=== PATIENT | female | born 1960 | race African-American/Black ===

== ENCOUNTER 2020-05-18 06:49 | Day surgery (SDC) | payer MEDICAID, MEDICARE, OTHER ==
[~2020-05-18 06:49] MED LIST: Lactated Ringers 1,000 ML IV SCH
[2020-05-18] MEDS ORDERED: Lactated Ringers 1,000 ML IV SCH (07:00)
[2020-05-18] MEDS ORDERED: Midazolam 1 MG/ML 2 ML SDV ONE (07:16)
[2020-05-18] MEDS ORDERED: Propofol 200 MG/20 ML SDV ONE (07:16)
[2020-05-18] MEDS ORDERED: fentaNYL 100 MCG/2 ML SDV ONE (07:16)
[2020-05-18 08:28] VITALS: BP 136/62; PULSE 79
--- NOTE | 2020-05-18 11:15 | OR ---
PREOPERATIVE DIAGNOSIS: Positive Cologuard. POSTOPERATIVE DIAGNOSIS: Large colon polyps. PROCEDURE PERFORMED: Total flexible colonoscopy. ANESTHESIA: MAC anesthesia. COMPLICATIONS: None apparent. BLOOD LOSS: Minimal. FINDINGS: 1. Ascending colon polyp, 2 mm, cold forceps. 2. Sigmoid colon polyp, 15 mm, hot snare. BOWEL PREP: [place] class 2. INDICATIONS FOR PROCEDURE: Isela Mancilla is a 60-year-old morbidly obese woman with recent positive Cologuard. She has never had a colonoscopy. She denies bloody or dark black stools. DETAILS OF PROCEDURE: After informed consent was obtained, the patient was brought to the procedure room. MAC anesthesia was induced by anesthesia colleagues. She was placed in left lateral decubitus position. The colonoscope was introduced into the rectum and advanced all the way to the cecum. Due to her habitus, this was a more difficult and time-consuming than usual. There was quite a bit of staining in the cecum what we felt that we missed no large polyps. The colonoscope was then slowly withdrawn and no pathology was identified except for what is mentioned in the above findings section. A retroflexed view was obtained. The patient tolerated the procedure well and was awoken from MAC anesthesia by Anesthesia colleagues without incident. Pathology: A) Colon, ascending, polyp Tubular adenoma B) Colon, sigmoid, polyp Tubulovillous adenoma Comment: Where the polyp stock margin is seen in one cross section of specimen B, no dysplasia is present. Recommend repeat colonoscopy in 1 year given the question of a positive margin on the large polyp. RKM: 05/18/2020 08:22:08 MODL: 05/18/2020 09:54:01 /[id number] JAXON
--- NOTE | 2020-05-29 14:40 | LETTER ---
05/29/2020 RE: KARTHIK MANCILLA : 1960 Karthik Mancilla [address] [place] [id number] Dear Ms. Mancilla: I am writing to inform you of the pathology results from your recent colonoscopy. You had 1 smaller polyp which was a tubular adenoma. You also had 1 larger polyp which was a tubulovillous adenoma. These polyps do not contain cancer, but they can become cancer which is why we removed them. Due to the large size of the polyp in your sigmoid colon, I recommend you have a repeat colonoscopy in 1 year to make sure that polyp is not growing back. I expect we will be able to utilize longer screening intervals after your colonoscopy in 1 year. Warmest regards,
== END 2020-05-18 09:05 | disposition home or self-care (01) ==
LOC: VM.SDS 06:49
PROVIDERS: ATTEND Student in an Organized Health Care Education/Training Program
DX: D12.5 Benign neoplasm of sigmoid colon (principal); D12.2 Benign neoplasm of ascending colon; U07.1 COVID-19; E66.01 Morbid (severe) obesity due to excess calories; I10 Essential (primary) hypertension; E78.5 Hyperlipidemia, unspecified; G89.29 Other chronic pain; I87.2 Venous insufficiency (chronic) (peripheral); E78.00 Pure hypercholesterolemia, unspecified; G47.33 Obstructive sleep apnea (adult) (pediatric); Z98.890 Other specified postprocedural states; Z79.899 Other long term (current) drug therapy; Z91.011 Allergy to milk products; Z68.44 Body mass index [BMI] 60.0-69.9, adult
CPT/HCPCS: 00811; 88305; J2250; J2704; J3010; J7120; U0002

== ENCOUNTER 2021-09-19 12:27 | Day surgery (SDC) | payer MEDICARE, SELFPAY ==
[~2021-09-19 12:27] MED LIST changes: +Sodium Chloride 0.9% 10 ML Syringe FLUSH PRN
[2021-09-19] MEDS ORDERED: Propofol 200 MG/20 ML SDV ONE ×2 (13:19→13:38)
[2021-09-19] MEDS ORDERED: fentaNYL 100 MCG/2 ML SDV ONE (13:19)
[2021-09-19 14:31] VITALS: BP 135/66; PULSE 78
== END 2021-09-19 15:15 | disposition home or self-care (01) ==
LOC: VM.SDS 12:27
PROVIDERS: ATTEND Family Medicine
DX: Z12.11 Encounter for screening for malignant neoplasm of colon (principal); D12.2 Benign neoplasm of ascending colon; D12.3 Benign neoplasm of transverse colon; G47.33 Obstructive sleep apnea (adult) (pediatric); I10 Essential (primary) hypertension; I48.91 Unspecified atrial fibrillation; E78.1 Pure hyperglyceridemia; I87.2 Venous insufficiency (chronic) (peripheral); E66.01 Morbid (severe) obesity due to excess calories; Z68.43 Body mass index [BMI] 50.0-59.9, adult; Z91.011 Allergy to milk products; Z98.890 Other specified postprocedural states; Z79.899 Other long term (current) drug therapy; Z79.82 Long term (current) use of aspirin; Z86.010 Personal history of colon polyps; I25.10 Atherosclerotic heart disease of native coronary artery without angina pectoris
CPT/HCPCS: 00811; 88305; J2704; J3010; J7120

== ENCOUNTER 2022-07-11 09:23 | Emergency (ER) | payer MEDICARE, OTHER ==
[2022-07-11 10:12] LABS: ANION GAP 42.1 mmol/L (5-15); CHLORIDE,CL 90 mmol/L (98-107); ESTIMATED GFR 13 mL/min (>=60); SODIUM,NA 138 mmol/L (136-145)
[2022-07-11] MEDS ORDERED: Sodium Chloride 0.9% 1,000 ML IV ONE (10:14)
[2022-07-11] MEDS ORDERED: cefTRIAXone 2 GM Vial IVPUSH ONE (10:15)
[2022-07-11] MEDS ORDERED: 50% Dextrose in Water 50 ML Syringe IVPUSH PRN ×2 (10:27→10:47)
[2022-07-11] MEDS ORDERED: Insulin Regular, Human 100 Units/ML 3 ML Vial IVPUSH ONE ×2 (10:27→10:47)
[2022-07-11] MEDS ORDERED: Glucagon,Human Recombinant 1 MG Vial IM PRN ×2 (10:27→10:47)
[2022-07-11] MEDS ORDERED: Ondansetron 4 MG/2 ML SDV IVPUSH ONE (10:34)
[2022-07-11] MEDS ORDERED: Potassium Chloride Riders 20 MEQ in Premix Bag 1 BAG IV SCH (10:45)
[2022-07-11] MEDS ORDERED: Sodium Chloride 0.45% 1,000 ML IV SCH ×2 (10:45→11:45)
[2022-07-11 11:02] LABS: PCO2 ARTERIAL,POC 20 mmHg (35-48)
[2022-07-11 11:32] LABS: CORONAVIRUS COVID-19 NAA NEGATIVE (NEGATIVE)
[2022-07-11 11:39] LABS: HEMOGLOBIN A1C 11.7 % (<5.7)
[2022-07-11 11:49] VITALS: BP 107/41; PULSE 95
== END 2022-07-11 12:35 | disposition short-term general hospital (02) ==
LOC: VM.ED 09:23
DX: E11.10 Type 2 diabetes mellitus with ketoacidosis without coma (principal); E78.00 Pure hypercholesterolemia, unspecified; I10 Essential (primary) hypertension; E66.9 Obesity, unspecified; Z68.30 Body mass index [BMI] 30.0-30.9, adult; Z91.011 Allergy to milk products; Z20.822 Contact with and (suspected) exposure to COVID-19; Z79.899 Other long term (current) drug therapy
CPT/HCPCS: 0240U; 36415; 36600; 70450; 71045; 73502; 80053; 82803; 83036; 83605; 83735; 84100; 84145; 84484; 85025; 86140; 87040; 93005; 96361; 96365; 96368; 96375; 99285; J0696; J1815; J2405; J3370; J3480; J7030; J7050; 93010; 99284; J3490

== ENCOUNTER 2022-07-22 12:15 | Inpatient (IN) | payer MEDICARE ==
[2022-07-22] MEDS ORDERED: 50% Dextrose in Water 50 ML Syringe IVPUSH PRN (14:06)
[2022-07-22] MEDS ORDERED: Glucagon,Human Recombinant 1 MG Vial IM PRN (14:06)
[2022-07-22] MEDS: Furosemide 40 MG Tab PO SCH (14:53)
[2022-07-22] MEDS: Misoprostol 100 MCG Tab PO SCH ×2 (18:00→20:28)
[2022-07-22] MEDS: Omeprazole 20 MG Cap.CR PO SCH (18:00)
[2022-07-22] MEDS: Insulin Lispro 100 Units/ML 3 ML Vial SUBCUT SCH ×2 (18:01→18:03)
[2022-07-22] MEDS: atorvaSTATin 10 MG Tab PO SCH (20:28)
[2022-07-22] MEDS: Calcium Carbonate/Vitamin D3 1250 MG-5 MCG Tab PO SCH (20:28)
[2022-07-23] MEDS: Acetaminophen 325 MG Tab PO PRN ×2 (00:14→20:41)
[2022-07-23] MEDS: Omeprazole 20 MG Cap.CR PO SCH ×2 (06:15→17:57)
[2022-07-23] MEDS: Furosemide 40 MG Tab PO SCH ×2 (08:09→14:05)
[2022-07-23] MEDS: Hydrochlorothiazide 25 MG Tab PO SCH (08:09)
[2022-07-23] MEDS: Cyanocobalamin (Vitamin B12) 250 MCG Tab PO SCH (08:11)
[2022-07-23] MEDS: Zinc Sulfate 220 MG Cap PO SCH (08:11)
[2022-07-23] MEDS: Aspirin 81 MG Tab.EC PO SCH (08:11)
[2022-07-23] MEDS: Misoprostol 100 MCG Tab PO SCH ×4 (08:12→20:34)
[2022-07-23] MEDS: Calcium Carbonate/Vitamin D3 1250 MG-5 MCG Tab PO SCH ×2 (08:12→20:34)
[2022-07-23] MEDS: Metoprolol Succinate 50 MG Tab.ER PO SCH (08:12)
[2022-07-23] MEDS: Insulin Lispro 100 Units/ML 3 ML Vial SUBCUT SCH ×6 (08:13→17:58)
[2022-07-23] MEDS: Polyethylene Glycol 3350 Powder 17 GM Packet PO SCH (08:15)
[2022-07-23] MEDS: Insulin Glarg,Human.Rec.Analog 100 Unit/ML SUBCUT SCH (08:18)
[2022-07-23] MEDS: atorvaSTATin 10 MG Tab PO SCH (20:34)
[2022-07-24] MEDS: Omeprazole 20 MG Cap.CR PO SCH ×2 (06:12→18:00)
[2022-07-24] MEDS: Insulin Lispro 100 Units/ML 3 ML Vial SUBCUT SCH ×6 (08:11→17:59)
[2022-07-24] MEDS: Cyanocobalamin (Vitamin B12) 250 MCG Tab PO SCH (08:27)
[2022-07-24] MEDS: Misoprostol 100 MCG Tab PO SCH ×4 (08:27→21:11)
[2022-07-24] MEDS: Aspirin 81 MG Tab.EC PO SCH (08:27)
[2022-07-24] MEDS: Furosemide 40 MG Tab PO SCH ×2 (08:27→13:49)
[2022-07-24] MEDS: Calcium Carbonate/Vitamin D3 1250 MG-5 MCG Tab PO SCH ×2 (08:28→21:12)
[2022-07-24] MEDS: Metoprolol Succinate 50 MG Tab.ER PO SCH (08:28)
[2022-07-24] MEDS: Polyethylene Glycol 3350 Powder 17 GM Packet PO SCH (08:28)
[2022-07-24] MEDS: Zinc Sulfate 220 MG Cap PO SCH (08:28)
[2022-07-24] MEDS: Hydrochlorothiazide 25 MG Tab PO SCH (08:29)
[2022-07-24] MEDS: Insulin Glarg,Human.Rec.Analog 100 Unit/ML SUBCUT SCH (08:30)
[2022-07-24] MEDS: atorvaSTATin 10 MG Tab PO SCH (21:12)
[2022-07-24] MEDS: Acetaminophen 325 MG Tab PO PRN (21:12)
[2022-07-25] MEDS: Omeprazole 20 MG Cap.CR PO SCH ×2 (06:41→17:28)
[2022-07-25] MEDS: Acetaminophen 325 MG Tab PO PRN (07:28)
[2022-07-25] MEDS: Calcium Carbonate/Vitamin D3 1250 MG-5 MCG Tab PO SCH ×2 (08:46→21:05)
[2022-07-25] MEDS: Misoprostol 100 MCG Tab PO SCH ×4 (08:46→21:04)
[2022-07-25] MEDS: Hydrochlorothiazide 25 MG Tab PO SCH (08:46)
[2022-07-25] MEDS: Furosemide 40 MG Tab PO SCH ×2 (08:46→13:24)
[2022-07-25] MEDS: Zinc Sulfate 220 MG Cap PO SCH (08:46)
[2022-07-25] MEDS: Cyanocobalamin (Vitamin B12) 250 MCG Tab PO SCH (08:46)
[2022-07-25] MEDS: Polyethylene Glycol 3350 Powder 17 GM Packet PO SCH (08:46)
[2022-07-25] MEDS: Aspirin 81 MG Tab.EC PO SCH (08:46)
[2022-07-25] MEDS: Metoprolol Succinate 50 MG Tab.ER PO SCH (08:47)
[2022-07-25] MEDS: Insulin Glarg,Human.Rec.Analog 100 Unit/ML SUBCUT SCH (08:53)
[2022-07-25] MEDS: Insulin Lispro 100 Units/ML 3 ML Vial SUBCUT SCH ×6 (08:54→17:29)
[2022-07-25] MEDS: oxyCODONE 5 MG Tab PO PRN (21:05)
[2022-07-25] MEDS: atorvaSTATin 10 MG Tab PO SCH (21:05)
[2022-07-26] MEDS: Omeprazole 20 MG Cap.CR PO SCH ×2 (06:21→18:22)
[2022-07-26] MEDS: Insulin Lispro 100 Units/ML 3 ML Vial SUBCUT SCH ×6 (08:30→18:21)
[2022-07-26] MEDS: Insulin Glarg,Human.Rec.Analog 100 Unit/ML SUBCUT SCH (08:35)
[2022-07-26] MEDS: Zinc Sulfate 220 MG Cap PO SCH (08:37)
[2022-07-26] MEDS: Aspirin 81 MG Tab.EC PO SCH (08:37)
[2022-07-26] MEDS: Misoprostol 100 MCG Tab PO SCH ×4 (08:41→20:45)
[2022-07-26] MEDS: Metoprolol Succinate 50 MG Tab.ER PO SCH (08:41)
[2022-07-26] MEDS: Hydrochlorothiazide 25 MG Tab PO SCH (08:41)
[2022-07-26] MEDS: Polyethylene Glycol 3350 Powder 17 GM Packet PO SCH (08:42)
[2022-07-26] MEDS: Calcium Carbonate/Vitamin D3 1250 MG-5 MCG Tab PO SCH ×2 (08:42→20:46)
[2022-07-26] MEDS: Furosemide 40 MG Tab PO SCH ×2 (08:42→14:45)
[2022-07-26] MEDS: Cyanocobalamin (Vitamin B12) 250 MCG Tab PO SCH (08:42)
[2022-07-26] MEDS: atorvaSTATin 10 MG Tab PO SCH (20:45)
[2022-07-26] MEDS: Acetaminophen 325 MG Tab PO PRN (20:48)
[2022-07-27] MEDS: Omeprazole 20 MG Cap.CR PO SCH ×2 (06:01→16:49)
[2022-07-27] MEDS: Polyethylene Glycol 3350 Powder 17 GM Packet PO SCH (08:13)
[2022-07-27] MEDS: Aspirin 81 MG Tab.EC PO SCH (08:13)
[2022-07-27] MEDS: Zinc Sulfate 220 MG Cap PO SCH (08:14)
[2022-07-27] MEDS: Furosemide 40 MG Tab PO SCH ×2 (08:14→16:49)
[2022-07-27] MEDS: Cyanocobalamin (Vitamin B12) 250 MCG Tab PO SCH (08:14)
[2022-07-27] MEDS: Hydrochlorothiazide 25 MG Tab PO SCH (08:14)
[2022-07-27] MEDS: Calcium Carbonate/Vitamin D3 1250 MG-5 MCG Tab PO SCH ×2 (08:14→21:29)
[2022-07-27] MEDS: Misoprostol 100 MCG Tab PO SCH ×4 (08:14→21:29)
[2022-07-27] MEDS: Metoprolol Succinate 50 MG Tab.ER PO SCH (08:16)
[2022-07-27] MEDS: Insulin Lispro 100 Units/ML 3 ML Vial SUBCUT SCH ×6 (08:17→17:49)
[2022-07-27] MEDS: Insulin Glarg,Human.Rec.Analog 100 Unit/ML SUBCUT SCH (08:18)
[2022-07-27] MEDS: oxyCODONE 5 MG Tab PO PRN (21:29)
[2022-07-27] MEDS: atorvaSTATin 10 MG Tab PO SCH (21:29)
[2022-07-28] MEDS: Omeprazole 20 MG Cap.CR PO SCH ×2 (06:45→17:50)
[2022-07-28] MEDS: Furosemide 40 MG Tab PO SCH ×2 (08:37→13:31)
[2022-07-28] MEDS: Cyanocobalamin (Vitamin B12) 250 MCG Tab PO SCH (08:37)
[2022-07-28] MEDS: Aspirin 81 MG Tab.EC PO SCH (08:37)
[2022-07-28] MEDS: Hydrochlorothiazide 25 MG Tab PO SCH (08:37)
[2022-07-28] MEDS: Calcium Carbonate/Vitamin D3 1250 MG-5 MCG Tab PO SCH ×2 (08:38→20:26)
[2022-07-28] MEDS: Misoprostol 100 MCG Tab PO SCH ×4 (08:38→20:26)
[2022-07-28] MEDS: Polyethylene Glycol 3350 Powder 17 GM Packet PO SCH (08:38)
[2022-07-28] MEDS: Metoprolol Succinate 50 MG Tab.ER PO SCH (08:38)
[2022-07-28] MEDS: Zinc Sulfate 220 MG Cap PO SCH (08:38)
[2022-07-28] MEDS: Insulin Lispro 100 Units/ML 3 ML Vial SUBCUT SCH ×6 (08:39→17:56)
[2022-07-28] MEDS: Insulin Glarg,Human.Rec.Analog 100 Unit/ML SUBCUT SCH (08:42)
[2022-07-28] MEDS: atorvaSTATin 10 MG Tab PO SCH (20:26)
[2022-07-28] MEDS: oxyCODONE 5 MG Tab PO PRN (21:31)
[2022-07-29] MEDS: Omeprazole 20 MG Cap.CR PO SCH ×2 (06:07→18:15)
[2022-07-29 07:07] LABS: ANION GAP 11.7 mmol/L (5-15)
[2022-07-29] MEDS: Metoprolol Succinate 50 MG Tab.ER PO SCH (08:06)
[2022-07-29] MEDS: Zinc Sulfate 220 MG Cap PO SCH (08:06)
[2022-07-29] MEDS: Misoprostol 100 MCG Tab PO SCH ×4 (08:06→21:14)
[2022-07-29] MEDS: Hydrochlorothiazide 25 MG Tab PO SCH (08:06)
[2022-07-29] MEDS: Calcium Carbonate/Vitamin D3 1250 MG-5 MCG Tab PO SCH ×2 (08:06→21:15)
[2022-07-29] MEDS: Aspirin 81 MG Tab.EC PO SCH (08:06)
[2022-07-29] MEDS: Cyanocobalamin (Vitamin B12) 250 MCG Tab PO SCH (08:06)
[2022-07-29] MEDS: Insulin Glarg,Human.Rec.Analog 100 Unit/ML SUBCUT SCH (08:07)
[2022-07-29] MEDS: Insulin Lispro 100 Units/ML 3 ML Vial SUBCUT SCH ×5 (08:07→18:16)
[2022-07-29] MEDS: Furosemide 40 MG Tab PO SCH ×2 (08:08→13:39)
[2022-07-29] MEDS: Polyethylene Glycol 3350 Powder 17 GM Packet PO SCH (08:08)
[2022-07-29] MEDS: atorvaSTATin 10 MG Tab PO SCH (21:14)
[2022-07-29] MEDS: oxyCODONE 5 MG Tab PO PRN (22:41)
[2022-07-30] MEDS: Omeprazole 20 MG Cap.CR PO SCH ×2 (06:46→18:03)
[2022-07-30] MEDS: Polyethylene Glycol 3350 Powder 17 GM Packet PO SCH (08:12)
[2022-07-30] MEDS: Insulin Lispro 100 Units/ML 3 ML Vial SUBCUT SCH ×8 (08:13→18:30)
[2022-07-30] MEDS: Insulin Glarg,Human.Rec.Analog 100 Unit/ML SUBCUT SCH (08:13)
[2022-07-30] MEDS: Calcium Carbonate/Vitamin D3 1250 MG-5 MCG Tab PO SCH ×2 (08:14→21:06)
[2022-07-30] MEDS: Cyanocobalamin (Vitamin B12) 250 MCG Tab PO SCH (08:14)
[2022-07-30] MEDS: Aspirin 81 MG Tab.EC PO SCH (08:14)
[2022-07-30] MEDS: Zinc Sulfate 220 MG Cap PO SCH (08:14)
[2022-07-30] MEDS: Furosemide 40 MG Tab PO SCH ×2 (08:14→13:52)
[2022-07-30] MEDS: Metoprolol Succinate 50 MG Tab.ER PO SCH (08:14)
[2022-07-30] MEDS: Hydrochlorothiazide 25 MG Tab PO SCH (08:14)
[2022-07-30] MEDS: Misoprostol 100 MCG Tab PO SCH ×4 (08:14→21:06)
[2022-07-30] MEDS: Acetaminophen 325 MG Tab PO PRN (09:57)
[2022-07-30] MEDS: oxyCODONE 5 MG Tab PO PRN (21:06)
[2022-07-30] MEDS: atorvaSTATin 10 MG Tab PO SCH (21:06)
[2022-07-31] MEDS: Acetaminophen 325 MG Tab PO PRN (04:22)
[2022-07-31] MEDS: Omeprazole 20 MG Cap.CR PO SCH (06:24)
[2022-07-31] MEDS: Insulin Lispro 100 Units/ML 3 ML Vial SUBCUT SCH ×4 (08:43→11:20)
[2022-07-31] MEDS: Insulin Glarg,Human.Rec.Analog 100 Unit/ML SUBCUT SCH (08:45)
[2022-07-31] MEDS: Hydrochlorothiazide 25 MG Tab PO SCH (08:46)
[2022-07-31] MEDS: Calcium Carbonate/Vitamin D3 1250 MG-5 MCG Tab PO SCH (08:46)
[2022-07-31] MEDS: Furosemide 40 MG Tab PO SCH (08:47)
[2022-07-31] MEDS: Misoprostol 100 MCG Tab PO SCH (08:48)
[2022-07-31] MEDS: Zinc Sulfate 220 MG Cap PO SCH (08:48)
[2022-07-31] MEDS: Aspirin 81 MG Tab.EC PO SCH (08:48)
[2022-07-31] MEDS: Metoprolol Succinate 50 MG Tab.ER PO SCH (08:49)
[2022-07-31 08:53] VITALS: BP 132/74; PULSE 94
[2022-07-31] MEDS: Cyanocobalamin (Vitamin B12) 250 MCG Tab PO SCH (08:53)
[2022-07-31] MEDS: Polyethylene Glycol 3350 Powder 17 GM Packet PO SCH (08:54)
[2022-07-31] MEDS: oxyCODONE 5 MG Tab PO PRN (10:56)
== END 2022-07-31 12:41 | disposition home health service (06) | DRG 682 ==
LOC: VM.MS 12:15
PROVIDERS: ADMIT Nurse Practitioner Family; ATTEND Nurse Practitioner Family
DX: N17.9 Acute kidney failure, unspecified (principal); E11.10 Type 2 diabetes mellitus with ketoacidosis without coma; G93.41 Metabolic encephalopathy; I50.32 Chronic diastolic (congestive) heart failure; K22.10 Ulcer of esophagus without bleeding; Z68.43 Body mass index [BMI] 50.0-59.9, adult; I24.8 Other forms of acute ischemic heart disease; E66.01 Morbid (severe) obesity due to excess calories; I25.10 Atherosclerotic heart disease of native coronary artery without angina pectoris; K44.9 Diaphragmatic hernia without obstruction or gangrene; K31.89 Other diseases of stomach and duodenum; E78.00 Pure hypercholesterolemia, unspecified; G89.29 Other chronic pain; I87.2 Venous insufficiency (chronic) (peripheral); M54.9 Dorsalgia, unspecified; E78.5 Hyperlipidemia, unspecified; G47.33 Obstructive sleep apnea (adult) (pediatric); I11.0 Hypertensive heart disease with heart failure; Z79.82 Long term (current) use of aspirin; Z79.899 Other long term (current) drug therapy; Z79.4 Long term (current) use of insulin; Z98.890 Other specified postprocedural states; Z83.3 Family history of diabetes mellitus
CPT/HCPCS: 36415; 80053; 82947; 85027; 95851-GO; 97110-GP; 97116-GP; 97162-GP; 97165-GO; 97530-GP; 97535-GO; A9270-GY; J1815-GY

== ENCOUNTER 2022-08-01 20:53 | Emergency (ER) | payer MEDICARE ==
[2022-08-01] MEDS ORDERED: 50% Dextrose in Water 50 ML Syringe IV ONE ×5 (21:02→23:51)
[2022-08-01 21:32] LABS: ANION GAP 12.6 mmol/L (5-15); CHLORIDE,CL 103 mmol/L (98-107); ESTIMATED GFR 52 mL/min (>=60); SODIUM,NA 141 mmol/L (136-145)
[2022-08-01 22:34] VITALS: PULSE 108
[2022-08-02] MEDS ORDERED: 50% Dextrose in Water 50 ML Syringe IV ONE (00:19)
[2022-08-02 01:09] VITALS: BP 130/57
== END 2022-08-02 01:56 | disposition home or self-care (01) ==
LOC: VM.ED 20:53
DX: T38.3X1A Poisoning by insulin and oral hypoglycemic [antidiabetic] drugs, accidental (unintentional), initial encounter (principal); E11.9 Type 2 diabetes mellitus without complications; I11.0 Hypertensive heart disease with heart failure; I50.9 Heart failure, unspecified; E78.00 Pure hypercholesterolemia, unspecified; E66.9 Obesity, unspecified; Z68.44 Body mass index [BMI] 60.0-69.9, adult; Z91.011 Allergy to milk products; Z79.899 Other long term (current) drug therapy; Z79.4 Long term (current) use of insulin
CPT/HCPCS: 36415; 80053; 82803; 82947; 85025; 96374; 96376; 99283-25; 99284; J3490

== ENCOUNTER 2024-06-27 12:37 | Inpatient (IN) | payer MEDICARE ==
[2024-06-27] MEDS: Furosemide 40 MG/4 ML VIAL IV ONE (13:48)
[2024-06-27] MEDS: Sodium Chloride 0.9% 10 ML Syringe FLUSH PRN (13:48)
[2024-06-27 14:29] LABS: D-DIMER QUANTITATIVE 1.37 mg/LFEU (<=0.58); PROTHROMBIN TIME 10.6 SEC (9.6-12.0)
[2024-06-27] MEDS: Enoxaparin 40 MG/0.4 ML Syringe SUBCUT ONE (14:50)
[2024-06-27] MEDS: Iopamidol 755 Mg/ML 100 ML Bottle IVPUSH ONE (16:59)
[2024-06-27] MEDS ORDERED: Acetaminophen 325 MG Tab PO PRN (17:41)
[2024-06-27] MEDS ORDERED: tiZANidine 4 MG Tab PO PRN (17:41)
[2024-06-27] MEDS: Magnesium Oxide 400 MG Tab PO SCH (17:48)
[2024-06-27] MEDS: Calcium Carbonate/Vitamin D3 1250 MG-5 MCG Tab PO SCH (18:10)
[2024-06-27] MEDS: traZODone 50 MG Tab PO SCH (21:58)
[2024-06-27] MEDS: atorvaSTATin 10 MG Tab PO SCH (21:58)
[2024-06-27] MEDS: Enoxaparin 40 MG/0.4 ML Syringe SUBCUT SCH (21:59)
[2024-06-28 06:58] LABS: BASOPHILS ABSOLUTE AUTO 0.1 x10^3/uL (0.0-0.2); BASOPHILS PERCENT AUTO 1.2 % (0.2-1.2); EOSINOPHILS ABSOLUTE AUTO 0.1 x10^3/uL (0.0-0.5); EOSINOPHILS PERCENT AUTO 3.2 % (0.0-4.0); HEMATOCRIT 31.8 % (33.0-47.0); HEMOGLOBIN 10.6 g/dL (12.0-16.0); IMMATURE GRAN ABSOLUTE AUTO 0.01 x10^3/uL (0.00-0.07); LYMPHOCYTES ABSOLUTE AUTO 1.4 x10^3/uL (1.0-4.8); LYMPHOCYTES PERCENT AUTO 31.8 % (25.0-50.0); MEAN CORPUSCULAR HEMOGLOBIN 26.7 pg (26.0-32.0); MEAN CORPUSCULAR HGB CONC 33.3 g/dL (32.0-36.0); MEAN CORPUSCULAR VOLUME 80.1 fL (78.0-93.0); MONOCYTES ABSOLUTE AUTO 0.6 x10^3/uL (0.0-0.8); MONOCYTES PERCENT AUTO 14.4 % (2.0-11.0); NEUTROPHILS ABSOLUTE AUTO 2.1 x10^3/uL (1.8-7.7); NEUTROPHILS PERCENT AUTO 49.2 % (50.0-80.0); RED BLOOD CELL COUNT 3.97 x10^6/uL (4.00-5.50); WHITE BLOOD CELL COUNT,WBC 4.3 x10^3/uL (4.0-10.0)
[2024-06-28 07:19] LABS: PLATELET COUNT,PLT 200 x10^3/uL (130-400)
[2024-06-28 07:23] LABS: A/G RATIO 0.78; ALBUMIN 3.2 g/dL (3.4-5.0); BILIRUBIN TOTAL 0.8 mg/dL (0.2-1.0); CALCIUM 9.4 mg/dL (8.5-10.1); CREATININE 1.3 mg/dL (0.55-1.02); EST CRCL DRUG DOSING (CG) 35.03 mL/min; POTASSIUM,K 3.8 mmol/L (3.5-5.1); PROTEIN TOTAL,TP 7.3 g/dL (6.4-8.2)
[2024-06-28 07:25] LABS: ANION GAP 13.8 mmol/L (5-15)
[2024-06-28] MEDS: Zinc Sulfate 220 MG Cap PO SCH (08:23)
[2024-06-28] MEDS: Potassium Chloride 20 MEQ Tab.ER PO SCH (08:23)
[2024-06-28] MEDS: Metoprolol Succinate 50 MG Tab.ER PO SCH (08:24)
[2024-06-28] MEDS: Multivitamin Tab PO SCH (08:24)
[2024-06-28] MEDS: Furosemide 40 MG/4 ML VIAL IV SCH (08:24)
[2024-06-28] MEDS: Cyanocobalamin (Vitamin B12) 250 MCG Tab PO SCH (08:24)
[2024-06-28] MEDS: Polyethylene Glycol 3350 Powder 17 GM Packet PO SCH (08:28)
[2024-06-28] MEDS ORDERED: atorvaSTATin 10 MG Tab PO SCH (09:00)
[2024-06-28] MEDS: Enoxaparin 40 MG/0.4 ML Syringe SUBCUT SCH (11:21)
[2024-06-29 07:03] LABS: BASOPHILS PERCENT AUTO 0.4 % (0.2-1.2); EOSINOPHILS ABSOLUTE AUTO 0.1 x10^3/uL (0.0-0.5); HEMATOCRIT 31.8 % (33.0-47.0); HEMOGLOBIN 10.5 g/dL (12.0-16.0); IMMATURE GRAN ABSOLUTE AUTO 0.01 x10^3/uL (0.00-0.07); LYMPHOCYTES PERCENT AUTO 20.6 % (25.0-50.0); MEAN CORPUSCULAR HEMOGLOBIN 26.7 pg (26.0-32.0); MEAN CORPUSCULAR VOLUME 80.9 fL (78.0-93.0); MONOCYTES ABSOLUTE AUTO 0.4 x10^3/uL (0.0-0.8); MONOCYTES PERCENT AUTO 8.5 % (2.0-11.0); NEUTROPHILS ABSOLUTE AUTO 3.4 x10^3/uL (1.8-7.7); NEUTROPHILS PERCENT AUTO 68.3 % (50.0-80.0); PLATELET COUNT,PLT 195 x10^3/uL (130-400); RED BLOOD CELL COUNT 3.93 x10^6/uL (4.00-5.50); WHITE BLOOD CELL COUNT,WBC 4.9 x10^3/uL (4.0-10.0)
[2024-06-29 07:28] LABS: CREATININE 1.3 mg/dL (0.55-1.02); EST CRCL DRUG DOSING (CG) 35.03 mL/min; POTASSIUM,K 4.4 mmol/L (3.5-5.1)
[2024-06-29 07:30] LABS: ANION GAP 14.4 mmol/L (5-15)
[2024-06-29] MEDS ORDERED: Albuterol 0.083% 2.5 MG/3 ML Neb Soln NEB PRN (08:22)
[2024-06-29] MEDS ORDERED: Albuterol/Ipratropium 3.0-0.5 MG/3 ML Neb Soln NEB ONE (08:26)
[2024-06-29] MEDS: Enoxaparin 40 MG/0.4 ML Syringe SUBCUT SCH (09:29)
[2024-06-29] MEDS: Albuterol/Ipratropium 3.0-0.5 MG/3 ML Neb Soln NEB SCH (09:45)
[2024-06-29] MEDS: Metoprolol Succinate 50 MG Tab.ER PO ONE (13:18)
[2024-06-30] MEDS: Metoprolol Tartrate 5 MG/5 ML SDV IVPUSH ONE ×2 (03:55→07:27)
[2024-06-30] MEDS ORDERED: Digoxin 500 MCG/2 ML Amp IVPUSH ONE ×2 (09:00)
[2024-06-30] MEDS: Digoxin 500 MCG/2 ML Amp IVPUSH SCH ×2 (12:00→18:05)
[2024-07-01 06:56] LABS: HEMATOCRIT 32.6 % (33.0-47.0); HEMOGLOBIN 10.8 g/dL (12.0-16.0); MEAN CORPUSCULAR HEMOGLOBIN 27.1 pg (26.0-32.0); MEAN CORPUSCULAR HGB CONC 33.1 g/dL (32.0-36.0); MEAN CORPUSCULAR VOLUME 81.9 fL (78.0-93.0); RED BLOOD CELL COUNT 3.98 x10^6/uL (4.00-5.50); WHITE BLOOD CELL COUNT,WBC 4.1 x10^3/uL (4.0-10.0)
[2024-07-01] MEDS: Metoprolol Succinate 50 MG Tab.ER PO ONE (13:14)
[2024-07-01 13:15] VITALS: BP 118/67; PULSE 113
== END 2024-07-01 14:55 | disposition home or self-care (01) | DRG 280 ==
LOC: VM.MS 12:37
PROVIDERS: ADMIT Nurse Practitioner Family; ATTEND Nurse Practitioner Family
PROC: 5A09357 Assistance with Respiratory Ventilation, Less than 24 Consecutive Hours, Continuous Positive Airway Pressure (ICD-10-PCS; principal; 2024-06-27)
DX: I13.0 Hypertensive heart and chronic kidney disease with heart failure and stage 1 through stage 4 chronic kidney disease, or unspecified chronic kidney disease (principal); I50.33 Acute on chronic diastolic (congestive) heart failure; I21.4 Non-ST elevation (NSTEMI) myocardial infarction; Z68.43 Body mass index [BMI] 50.0-59.9, adult; I48.20 Chronic atrial fibrillation, unspecified; E66.01 Morbid (severe) obesity due to excess calories; N18.31 Chronic kidney disease, stage 3a; E78.00 Pure hypercholesterolemia, unspecified; H54.7 Unspecified visual loss; G89.29 Other chronic pain; M54.9 Dorsalgia, unspecified; I87.2 Venous insufficiency (chronic) (peripheral); E11.22 Type 2 diabetes mellitus with diabetic chronic kidney disease; G47.33 Obstructive sleep apnea (adult) (pediatric); Z98.51 Tubal ligation status; Z91.011 Allergy to milk products; Z79.82 Long term (current) use of aspirin; Z79.1 Long term (current) use of non-steroidal anti-inflammatories (NSAID); Z79.4 Long term (current) use of insulin; Z79.899 Other long term (current) drug therapy; Z79.02 Long term (current) use of antithrombotics/antiplatelets; Z95.5 Presence of coronary angioplasty implant and graft; Z86.16 Personal history of COVID-19
CPT/HCPCS: 36415; 71046; 71275; 80048; 80053; 82947; 83735; 83880; 84484; 85025; 85027; 85379; 85610; 85730; 93005; 94640; 94760; 99232; A9270-GY; J1160; J1650; J1940; J3490; J7620-GY; Q3014; Q9967

== ENCOUNTER 2024-07-18 18:11 | Emergency (ER) | payer MEDICARE ==
[2024-07-18] MEDS ORDERED: Sodium Chloride 0.9% 10 ML Syringe FLUSH PRN (18:19)
[2024-07-18] MEDS: Furosemide 40 MG/4 ML VIAL IV ONE (18:33)
[2024-07-18] MEDS: Albuterol/Ipratropium 3.0-0.5 MG/3 ML Neb Soln NEB ONE (18:33)
[2024-07-18 19:14] LABS: BASOPHILS PERCENT AUTO 0.3 % (0.2-1.2); EOSINOPHILS ABSOLUTE AUTO 0.1 x10^3/uL (0.0-0.5); HEMATOCRIT 33.2 % (33.0-47.0); IMMATURE GRAN ABSOLUTE AUTO 0.02 x10^3/uL (0.00-0.07); LYMPHOCYTES PERCENT AUTO 15.2 % (25.0-50.0); MEAN CORPUSCULAR HGB CONC 33.1 g/dL (32.0-36.0); MEAN CORPUSCULAR VOLUME 81.4 fL (78.0-93.0); MONOCYTES ABSOLUTE AUTO 0.5 x10^3/uL (0.0-0.8); MONOCYTES PERCENT AUTO 8.2 % (2.0-11.0); NEUTROPHILS ABSOLUTE AUTO 4.7 x10^3/uL (1.8-7.7); PLATELET COUNT,PLT 244 x10^3/uL (130-400); RED BLOOD CELL COUNT 4.08 x10^6/uL (4.00-5.50); WHITE BLOOD CELL COUNT,WBC 6.2 x10^3/uL (4.0-10.0)
[2024-07-18 19:26] LABS: PROTHROMBIN TIME 10.8 SEC (9.6-12.0); PTT,PARTIAL THROMBOPLSTIN TIME 27.5 SEC (23.5-33.2)
[2024-07-18 19:34] LABS: A/G RATIO 0.72; ALANINE AMINOTRANSFERASE,ALT 45 U/L (14-59); ALBUMIN 3.3 g/dL (3.4-5.0); ALKALINE PHOSPHATASE 131 U/L (46-116); ANION GAP 13.8 mmol/L (5-15); ASPARTATE AMNIOTRANSFERASE,AST 42 U/L (15-37); BILIRUBIN TOTAL 0.8 mg/dL (0.2-1.0); BLOOD UREA NITROGEN,BUN 29 mg/dL (7-18); CALCIUM 9.6 mg/dL (8.5-10.1); CARBON DIOXIDE,CO2 28 mmol/L (21-32); CHLORIDE,CL 104 mmol/L (98-107); CREATININE 1.5 mg/dL (0.55-1.02); ESTIMATED GFR 39 mL/min (>=60); GLUCOSE RANDOM 141 mg/dL (70-99); MAGNESIUM 1.7 mg/dL (1.8-2.4); POTASSIUM,K 3.8 mmol/L (3.5-5.1); PRO B-TYPE NATRIUR PEPT,BNPPRO 5625 pg/mL (<=125); PROTEIN TOTAL,TP 7.9 g/dL (6.4-8.2); SODIUM,NA 142 mmol/L (136-145)
[2024-07-18] MEDS: Aspirin 81 MG Tab.Chew PO ONE (20:29)
[2024-07-18 20:33] VITALS: BP 145/58; PULSE 81
== END 2024-07-18 20:50 | disposition short-term general hospital (02) ==
LOC: VM.ED 18:11
DX: I21.4 Non-ST elevation (NSTEMI) myocardial infarction (principal); I11.0 Hypertensive heart disease with heart failure; I50.9 Heart failure, unspecified; E78.00 Pure hypercholesterolemia, unspecified; E11.9 Type 2 diabetes mellitus without complications; Z91.011 Allergy to milk products; Z79.82 Long term (current) use of aspirin; Z79.899 Other long term (current) drug therapy
CPT/HCPCS: 36415; 71045; 80053; 83735; 83880; 84484; 85025; 85610; 85730; 87040; 87428-QW; 93005; 93010; 94640; 96374; 99284; 99285-25; A9270-GY; J1940; J7620-GY

== ENCOUNTER 2024-07-22 16:35 | Inpatient (IN) | payer MEDICARE ==
[2024-07-22] MEDS: Metoprolol Tartrate 5 MG/5 ML SDV IVPUSH ONE (16:59)
[2024-07-22] MEDS: Diltiazem 50 MG/10 ML SDV IVPUSH ONE ×2 (17:30→18:00)
[2024-07-22] MEDS: Furosemide 40 MG/4 ML VIAL IV ONE (18:16)
[2024-07-22] MEDS ORDERED: tiZANidine 4 MG Tab PO PRN (19:07)
[2024-07-22] MEDS: Diltiazem 125 MG in Sodium Chloride 0.9% 100 ML IV SCH (19:09)
[2024-07-22] MEDS: Metoprolol Succinate 50 MG Tab.ER PO SCH (20:22)
[2024-07-22] MEDS: traZODone 50 MG Tab PO SCH (20:23)
[2024-07-22] MEDS: Apixaban 5 MG Tab PO SCH (20:23)
[2024-07-22] MEDS: Potassium Chloride 20 MEQ Tab.ER PO SCH (20:23)
[2024-07-22] MEDS: atorvaSTATin 10 MG Tab PO SCH (20:24)
[2024-07-23 08:39] LABS: BASOPHILS PERCENT AUTO 0.7 % (0.2-1.2); EOSINOPHILS ABSOLUTE AUTO 0.3 x10^3/uL (0.0-0.5); EOSINOPHILS PERCENT AUTO 4.4 % (0.0-4.0); HEMOGLOBIN 10.8 g/dL (12.0-16.0); IMMATURE GRAN ABSOLUTE AUTO 0.02 x10^3/uL (0.00-0.07); LYMPHOCYTES ABSOLUTE AUTO 1.6 x10^3/uL (1.0-4.8); LYMPHOCYTES PERCENT AUTO 28.5 % (25.0-50.0); MEAN CORPUSCULAR HEMOGLOBIN 26.6 pg (26.0-32.0); MEAN CORPUSCULAR HGB CONC 32.7 g/dL (32.0-36.0); MEAN CORPUSCULAR VOLUME 81.3 fL (78.0-93.0); MONOCYTES ABSOLUTE AUTO 0.7 x10^3/uL (0.0-0.8); MONOCYTES PERCENT AUTO 12.7 % (2.0-11.0); NEUTROPHILS PERCENT AUTO 53.3 % (50.0-80.0); PLATELET COUNT,PLT 197 x10^3/uL (130-400); RED BLOOD CELL COUNT 4.06 x10^6/uL (4.00-5.50); WHITE BLOOD CELL COUNT,WBC 5.7 x10^3/uL (4.0-10.0)
[2024-07-23 08:46] LABS: ANION GAP 10.8 mmol/L (5-15); CALCIUM 9.3 mg/dL (8.5-10.1); CREATININE 1.5 mg/dL (0.55-1.02); EST CRCL DRUG DOSING (CG) 30.36 mL/min; MAGNESIUM 1.8 mg/dL (1.8-2.4); POTASSIUM,K 3.8 mmol/L (3.5-5.1)
[2024-07-23] MEDS: Calcium Carbonate/Vitamin D3 1250 MG-5 MCG Tab PO SCH (09:12)
[2024-07-23] MEDS: Multivitamin Tab PO SCH (09:12)
[2024-07-23] MEDS: Cyanocobalamin (Vitamin B12) 250 MCG Tab PO SCH (09:12)
[2024-07-23] MEDS: Aspirin 81 MG Tab.EC PO SCH (09:12)
[2024-07-23] MEDS: Polyethylene Glycol 3350 Powder 17 GM Packet PO SCH (09:13)
[2024-07-23] MEDS: Furosemide 40 MG/4 ML VIAL IV SCH (09:13)
[2024-07-23] MEDS: Zinc Sulfate 220 MG Cap PO SCH (09:17)
[2024-07-23] MEDS: Magnesium Oxide 400 MG Tab PO SCH (11:05)
[2024-07-23] MEDS: Diltiazem 240 MG Cap.ER PO SCH (11:59)
[2024-07-24 08:20] LABS: BASOPHILS PERCENT AUTO 0.7 % (0.2-1.2); EOSINOPHILS ABSOLUTE AUTO 0.3 x10^3/uL (0.0-0.5); EOSINOPHILS PERCENT AUTO 4.2 % (0.0-4.0); HEMATOCRIT 34.3 % (33.0-47.0); HEMOGLOBIN 11.2 g/dL (12.0-16.0); IMMATURE GRAN ABSOLUTE AUTO 0.02 x10^3/uL (0.00-0.07); LYMPHOCYTES ABSOLUTE AUTO 1.4 x10^3/uL (1.0-4.8); LYMPHOCYTES PERCENT AUTO 22.9 % (25.0-50.0); MEAN CORPUSCULAR HEMOGLOBIN 26.4 pg (26.0-32.0); MEAN CORPUSCULAR HGB CONC 32.7 g/dL (32.0-36.0); MEAN CORPUSCULAR VOLUME 80.9 fL (78.0-93.0); MONOCYTES ABSOLUTE AUTO 0.6 x10^3/uL (0.0-0.8); MONOCYTES PERCENT AUTO 9.7 % (2.0-11.0); NEUTROPHILS ABSOLUTE AUTO 3.7 x10^3/uL (1.8-7.7); NEUTROPHILS PERCENT AUTO 62.2 % (50.0-80.0); PLATELET COUNT,PLT 194 x10^3/uL (130-400); RED BLOOD CELL COUNT 4.24 x10^6/uL (4.00-5.50)
[2024-07-24 08:33] LABS: CREATININE 1.6 mg/dL (0.55-1.02); EST CRCL DRUG DOSING (CG) 28.46 mL/min; POTASSIUM,K 3.8 mmol/L (3.5-5.1)
[2024-07-24 08:41] LABS: ANION GAP 12.8 mmol/L (5-15)
[2024-07-24] MEDS: Digoxin 500 MCG/2 ML Amp IVPUSH SCH (09:57)
[2024-07-24] MEDS: Bumetanide 1 MG Tab PO SCH (13:06)
[2024-07-25 07:15] LABS: BASOPHILS PERCENT AUTO 0.5 % (0.2-1.2); EOSINOPHILS ABSOLUTE AUTO 0.3 x10^3/uL (0.0-0.5); EOSINOPHILS PERCENT AUTO 4.9 % (0.0-4.0); HEMATOCRIT 31.6 % (33.0-47.0); HEMOGLOBIN 10.5 g/dL (12.0-16.0); IMMATURE GRAN ABSOLUTE AUTO 0.01 x10^3/uL (0.00-0.07); LYMPHOCYTES ABSOLUTE AUTO 1.1 x10^3/uL (1.0-4.8); MEAN CORPUSCULAR HEMOGLOBIN 26.6 pg (26.0-32.0); MEAN CORPUSCULAR HGB CONC 33.2 g/dL (32.0-36.0); MEAN CORPUSCULAR VOLUME 80.2 fL (78.0-93.0); MONOCYTES ABSOLUTE AUTO 0.8 x10^3/uL (0.0-0.8); MONOCYTES PERCENT AUTO 12.3 % (2.0-11.0); NEUTROPHILS ABSOLUTE AUTO 4.3 x10^3/uL (1.8-7.7); NEUTROPHILS PERCENT AUTO 65.1 % (50.0-80.0); PLATELET COUNT,PLT 170 x10^3/uL (130-400); RED BLOOD CELL COUNT 3.94 x10^6/uL (4.00-5.50); WHITE BLOOD CELL COUNT,WBC 6.5 x10^3/uL (4.0-10.0)
[2024-07-25 07:29] LABS: A/G RATIO 0.71; BILIRUBIN TOTAL 0.9 mg/dL (0.2-1.0); CREATININE 1.7 mg/dL (0.55-1.02); EST CRCL DRUG DOSING (CG) 26.79 mL/min; POTASSIUM,K 3.7 mmol/L (3.5-5.1); PROTEIN TOTAL,TP 7.2 g/dL (6.4-8.2)
[2024-07-25 07:30] LABS: ANION GAP 10.7 mmol/L (5-15)
[2024-07-25] MEDS: Digoxin 500 MCG/2 ML Amp IVPUSH ONE (09:04)
[2024-07-25 14:26] VITALS: BP 106/65; PULSE 88
== END 2024-07-25 14:50 | disposition short-term general hospital (02) | DRG 280 ==
LOC: VM.ED 16:35 → VM.MS 18:03
PROVIDERS: ADMIT Internal Medicine; ATTEND Internal Medicine
PROC: 5A09357 Assistance with Respiratory Ventilation, Less than 24 Consecutive Hours, Continuous Positive Airway Pressure (ICD-10-PCS; principal; 2024-07-22)
DX: I48.92 Unspecified atrial flutter (principal); I11.0 Hypertensive heart disease with heart failure; I50.9 Heart failure, unspecified; I50.33 Acute on chronic diastolic (congestive) heart failure; E11.9 Type 2 diabetes mellitus without complications; E66.9 Obesity, unspecified; I21.4 Non-ST elevation (NSTEMI) myocardial infarction; Z79.82 Long term (current) use of aspirin; Z79.899 Other long term (current) drug therapy; Z68.43 Body mass index [BMI] 50.0-59.9, adult; J96.11 Chronic respiratory failure with hypoxia; I13.0 Hypertensive heart and chronic kidney disease with heart failure and stage 1 through stage 4 chronic kidney disease, or unspecified chronic kidney disease; H54.7 Unspecified visual loss; E78.00 Pure hypercholesterolemia, unspecified; K44.9 Diaphragmatic hernia without obstruction or gangrene; M54.9 Dorsalgia, unspecified; G89.29 Other chronic pain; E66.01 Morbid (severe) obesity due to excess calories; I25.10 Atherosclerotic heart disease of native coronary artery without angina pectoris; G47.33 Obstructive sleep apnea (adult) (pediatric); I27.20 Pulmonary hypertension, unspecified; N18.30 Chronic kidney disease, stage 3 unspecified; E11.22 Type 2 diabetes mellitus with diabetic chronic kidney disease; I87.8 Other specified disorders of veins; D64.9 Anemia, unspecified; Z91.011 Allergy to milk products; Z79.01 Long term (current) use of anticoagulants; Z98.890 Other specified postprocedural states; Z86.16 Personal history of COVID-19
CPT/HCPCS: 36415; 71046; 80048; 80053; 82947; 83735; 84484; 85025; 93005; 93010; 96374; 96375; 96376; 99284; 99285-25; A9270-GY; J1160; J1940; J3490

== ENCOUNTER 2024-11-19 23:01 | Inpatient (IN) | payer MEDICARE, OTHER ==
[2024-11-19 23:47] LABS: BASOPHILS PERCENT AUTO 0.7 % (0.2-1.2); EOSINOPHILS ABSOLUTE AUTO 0.1 x10^3/uL (0.0-0.5); EOSINOPHILS PERCENT AUTO 1.9 % (0.0-4.0); HEMATOCRIT 35.4 % (33.0-47.0); HEMOGLOBIN 11.7 g/dL (12.0-16.0); IMMATURE GRAN ABSOLUTE AUTO 0.02 x10^3/uL (0.00-0.07); LYMPHOCYTES ABSOLUTE AUTO 1.5 x10^3/uL (1.0-4.8); LYMPHOCYTES PERCENT AUTO 26.1 % (25.0-50.0); MEAN CORPUSCULAR HEMOGLOBIN 28.4 pg (26.0-32.0); MEAN CORPUSCULAR HGB CONC 33.1 g/dL (32.0-36.0); MEAN CORPUSCULAR VOLUME 85.9 fL (78.0-93.0); MONOCYTES ABSOLUTE AUTO 0.5 x10^3/uL (0.0-0.8); MONOCYTES PERCENT AUTO 9.2 % (2.0-11.0); NEUTROPHILS ABSOLUTE AUTO 3.6 x10^3/uL (1.8-7.7); NEUTROPHILS PERCENT AUTO 61.8 % (50.0-80.0); PLATELET COUNT,PLT 213 x10^3/uL (130-400); RED BLOOD CELL COUNT 4.12 x10^6/uL (4.00-5.50); WHITE BLOOD CELL COUNT,WBC 5.8 x10^3/uL (4.0-10.0)
[2024-11-20 00:07] LABS: A/G RATIO 0.87; ALANINE AMINOTRANSFERASE,ALT 13 U/L (14-59); ALBUMIN 4.1 g/dL (3.4-5.0); ALKALINE PHOSPHATASE 98 U/L (46-116); ASPARTATE AMNIOTRANSFERASE,AST 26 U/L (15-37); BILIRUBIN TOTAL 0.8 mg/dL (0.2-1.0); CALCIUM 9.6 mg/dL (8.5-10.1); CARBON DIOXIDE,CO2 24 mmol/L (21-32); CHLORIDE,CL 100 mmol/L (98-107); GLUCOSE RANDOM 185 mg/dL (70-99); MAGNESIUM 2.3 mg/dL (1.8-2.4); POTASSIUM,K 3.9 mmol/L (3.5-5.1); PRO B-TYPE NATRIUR PEPT,BNPPRO 1594 pg/mL (<=125); PROTEIN TOTAL,TP 8.8 g/dL (6.4-8.2); SODIUM,NA 141 mmol/L (136-145)
[2024-11-20 00:09] LABS: ANION GAP 20.9 mmol/L (5-15); ESTIMATED GFR 16 mL/min (>=60)
[2024-11-20 00:10] LABS: BLOOD UREA NITROGEN,BUN 88 mg/dL (7-18)
[2024-11-20 00:11] LABS: CREATININE 3.1 mg/dL (0.55-1.02)
[2024-11-20] MEDS: Sodium Chloride 0.9% 1,000 ML IV ONE (00:30)
[2024-11-20] MEDS ORDERED: Acetaminophen 325 MG Tab PO PRN (02:59)
[2024-11-20 07:46] LABS: BASOPHILS PERCENT AUTO 0.8 % (0.2-1.2); EOSINOPHILS ABSOLUTE AUTO 0.1 x10^3/uL (0.0-0.5); EOSINOPHILS PERCENT AUTO 1.3 % (0.0-4.0); HEMATOCRIT 30.2 % (33.0-47.0); IMMATURE GRAN ABSOLUTE AUTO 0.01 x10^3/uL (0.00-0.07); LYMPHOCYTES ABSOLUTE AUTO 1.3 x10^3/uL (1.0-4.8); LYMPHOCYTES PERCENT AUTO 24.5 % (25.0-50.0); MEAN CORPUSCULAR HEMOGLOBIN 28.3 pg (26.0-32.0); MEAN CORPUSCULAR HGB CONC 33.1 g/dL (32.0-36.0); MEAN CORPUSCULAR VOLUME 85.6 fL (78.0-93.0); MONOCYTES ABSOLUTE AUTO 0.5 x10^3/uL (0.0-0.8); MONOCYTES PERCENT AUTO 9.8 % (2.0-11.0); NEUTROPHILS ABSOLUTE AUTO 3.4 x10^3/uL (1.8-7.7); NEUTROPHILS PERCENT AUTO 63.4 % (50.0-80.0); PLATELET COUNT,PLT 184 x10^3/uL (130-400); RED BLOOD CELL COUNT 3.53 x10^6/uL (4.00-5.50); WHITE BLOOD CELL COUNT,WBC 5.3 x10^3/uL (4.0-10.0)
[2024-11-20 07:52] LABS: ANION GAP 12.7 mmol/L (5-15); CALCIUM 9.1 mg/dL (8.5-10.1); CREATININE 2.5 mg/dL (0.55-1.02); EST CRCL DRUG DOSING (CG) 18.22 mL/min; POTASSIUM,K 3.7 mmol/L (3.5-5.1)
[2024-11-20 07:57] LABS: APPEARANCE,URINE CLEAR (CLEAR); BILIRUBIN,URINE NEGATIVE (NEGATIVE); COLOR,URINE YELLOW (YELLOW); GLUCOSE,URINE NEGATIVE (NEGATIVE); KETONES,URINE NEGATIVE (NEGATIVE); LEUKOCYTE ESTERASE,URINE NEGATIVE (NEGATIVE); NITRITE,URINE NEGATIVE (NEGATIVE); OCCULT BLOOD,URINE NEGATIVE (NEGATIVE); PH,URINE 5.5 (5.0-8.0); PROTEIN,URINE NEGATIVE (NEGATIVE); UROBILINOGEN,URINE 0.2 EU/dL (0.2)
[2024-11-20 08:03] LABS: BACTERIA,URINE RARE /HPF (NOT SEEN); RBC,URINE 0-5 /HPF (NOT SEEN); SQUAMOUS EPITHELIAL CELLS,UR FEW /HPF (NOT SEEN); WBC,URINE 0-5 /HPF (NOT SEEN)
[2024-11-20] MEDS: Multivitamin Tab PO SCH (08:59)
[2024-11-20] MEDS: Metoprolol Succinate 50 MG Tab.ER PO SCH (08:59)
[2024-11-20] MEDS: Polyethylene Glycol 3350 Powder 17 GM Packet PO SCH (09:00)
[2024-11-20] MEDS: Amiodarone 200 MG Tab PO SCH (09:00)
[2024-11-20] MEDS: Cyanocobalamin (Vitamin B12) 250 MCG Tab PO SCH (09:00)
[2024-11-20] MEDS: Calcium Carbonate/Vitamin D3 1250 MG-5 MCG Tab PO SCH (09:00)
[2024-11-20] MEDS: Aspirin 81 MG Tab.EC PO SCH (09:00)
[2024-11-20] MEDS: Ferrous Sulfate 325 MG Tab PO SCH (09:00)
[2024-11-20 13:42] VITALS: BP 130/61; PULSE 66
[2024-11-20] MEDS ORDERED: Apixaban 5 MG Tab PO SCH (21:00)
[2024-11-20] MEDS ORDERED: atorvaSTATin 10 MG Tab PO SCH (21:00)
== END 2024-11-20 13:15 | disposition home or self-care (01) | DRG 683 ==
LOC: VM.ED 23:01 → VM.MS 11-20 00:36
PROVIDERS: ADMIT Internal Medicine; ATTEND Internal Medicine
DX: N17.9 Acute kidney failure, unspecified (principal); I13.0 Hypertensive heart and chronic kidney disease with heart failure and stage 1 through stage 4 chronic kidney disease, or unspecified chronic kidney disease; Z68.41 Body mass index [BMI] 40.0-44.9, adult; I50.32 Chronic diastolic (congestive) heart failure; I48.92 Unspecified atrial flutter; H54.7 Unspecified visual loss; E78.00 Pure hypercholesterolemia, unspecified; G47.30 Sleep apnea, unspecified; G89.29 Other chronic pain; M54.9 Dorsalgia, unspecified; E11.22 Type 2 diabetes mellitus with diabetic chronic kidney disease; Z68.42 Body mass index [BMI] 45.0-49.9, adult; I48.0 Paroxysmal atrial fibrillation; D50.9 Iron deficiency anemia, unspecified; E66.01 Morbid (severe) obesity due to excess calories; G25.81 Restless legs syndrome; I27.20 Pulmonary hypertension, unspecified; R09.02 Hypoxemia; N18.9 Chronic kidney disease, unspecified; I87.8 Other specified disorders of veins; Z91.011 Allergy to milk products; Z98.890 Other specified postprocedural states; Z86.16 Personal history of COVID-19; Z87.760 Personal history of (corrected) congenital diaphragmatic hernia or other congenital diaphragm malformations; Z90.6 Acquired absence of other parts of urinary tract; Z79.01 Long term (current) use of anticoagulants; Z79.899 Other long term (current) drug therapy; I25.2 Old myocardial infarction; Z79.82 Long term (current) use of aspirin; Z99.81 Dependence on supplemental oxygen
CPT/HCPCS: 36415; 80048; 80053; 81001; 82550; 82947; 83735; 83880; 85025; 93005; 93010; 96360; 96361; 99236-GT; 99284; 99285-25; A9270-GY; J7030